=== PATIENT | female | born 1940 | race Caucasian/White ===

== ENCOUNTER 2023-08-15 07:48 | Inpatient (IN) | payer MEDICARE, OTHER ==
[2023-08-15 08:33] LABS: Hematocrit 46.1 % (36.0-47.0); Hemoglobin 15.6 g/dL (12.0-16.0); Mean Corpuscular HGB CONC 33.8 g/dL (32.0-36.0); Mean Corpuscular Hemoglobin 30.8 pg (27.0-31.0); Mean Corpuscular Volume 90.9 fl (78.0-98.0); Mean Platelet Volume 9.2 fL (7.4-10.4); Platelet Count 385 10x3/uL (130-400); RBC Distribution Width 12.4 % (11.5-14.5); Red Blood Cell (RBC) Count 5.07 mill/uL (4.20-5.40); White Blood Cell (WBC) Count 19.2 10x3/uL (4.8-10.8)
[2023-08-15 08:42] LABS: Delete Auto Diff?? YES; Manual Diff?? YES
[2023-08-15 08:59] LABS: ALT (SGPT) 15 U/L (8-55); AST (SGOT) 19 U/L (5-34); Albumin 4.4 g/dL (3.4-4.8); Alkaline Phosphatase 132 U/L (40-110); Anion Gap 33 mmol/L (10-20); BUN (Urea Nitrogen) 31 mg/dL (9.8-20.1); Bilirubin, Total 0.5 mg/dL (0.2-1.2); CK (CPK) 401 U/L (29-168); Calc. Creatinine Clearance 0 mL/min (70-130); Calcium 12.3 mg/dL (7.8-10.44); Carbon Dioxide 11 mmol/L (23-31); Chloride 91 mmol/L (98-107); Estimated GFR 26; Globulin 4.5 g/dL (2.4-3.5); Lipase 10 U/L (8-78); Magnesium 2.6 mg/dL (1.6-2.6); Potassium 4.1 mmol/L (3.5-5.1); Protein, Total 8.9 g/dL (5.8-8.1); Sodium 131 mmol/L (136-145)
[2023-08-15 09:08] LABS: Glucose 565 mg/dL (83-110)
[2023-08-15 09:16] LABS: Bacteria/HPF None Seen HPF (None Seen); Bilirubin Negative (Negative); Blood, Urine 3+ (Negative); CAUTI Indications for Culture Alt mental st,lethar; Clarity Clear (Clear); Glucose, Urine (Dipstick) Greater than 1000 mg/dL (Negative); Ketone, Urine Greater than 150 mg/dL (Negative); Leukocyte Negative Leu/uL (Negative); Nitrite Negative (Negative); Protein, Urine (Dipstick) 50 mg/dL (Neg-Trace); RBC/HPF 0-3 HPF (0-3); Specific Gravity, Urine 1.023 (1.002-1.036); Squamous Epithelial 0-3 HPF (0-3); Urobilinogen Normal mg/dL (Less than 2); WBC/HPF 0-3 HPF (0-3); pH, Urine 5.5 (5.0-9.0)
[2023-08-15 09:17] LABS: Urine Culture Reflex No No
[2023-08-15] MEDS ORDERED: Vancomycin 1 GM/200 ML (FROZEN) BAG ONE (09:33)
[2023-08-15] MEDS ORDERED: Cefepime 2 GM VIAL ONE (09:33)
[2023-08-15] MEDS ORDERED: Sodium Chloride 0.9% 100 ML ONE (09:34)
[2023-08-15 09:36] LABS: SARS-CoV-2 NAA Rapid Test Not Detected (NotDetected)
[2023-08-15 09:37] LABS: INR-International Normal Ratio 1.2; PTT 30.6 sec (22.9-36.1); Prothrombin Time 15.8 sec (12.0-14.7)
[2023-08-15 09:58] LABS: Band 13 % (5-11); Lymphocytes 3 % (21-51); Monocytes 4 % (0-10); Neutrophil 80 % (42-75)
[2023-08-15 09:59] LABS: Platelet Adequacy Comment Appears Adequate
[2023-08-15] MEDS ORDERED: Sodium Bicarb 50 MEQ/50 ML Abboject 8.4% SYRINGE ONE (10:17)
[2023-08-15] MEDS ORDERED: INSULIN REGULAR IN 0.9 % NACL 100 UNITS/100 ML BAG ONE (10:32)
[2023-08-15] MEDS ORDERED: Dextrose 5 %-0.45 % NaCl 1,000 ML IV PRN (10:38)
[2023-08-15] MEDS ORDERED: Bisacodyl 10 MG SUPP PR PRN (10:38)
[2023-08-15] MEDS ORDERED: Senokot S 8.6-50 MG TAB PO PRN (10:38)
[2023-08-15] MEDS ORDERED: Dextrose 50% Abboject 50 ML SYRINGE SLOW IVP PRN (10:38)
[2023-08-15] MEDS ORDERED: Sodium Chloride 0.9% 1,000 ML IV PRN ×4 (10:38)
[2023-08-15] MEDS ORDERED: Electrolyte Replacement Protocol 1 EACH IVPB PRN (10:38)
[2023-08-15] MEDS ORDERED: NS 0.9% w/ 20 MEQ KCL 1,000 ML IV PRN ×2 (10:38)
[2023-08-15] MEDS ORDERED: Bisacodyl 5 MG TAB PO PRN (10:38)
[2023-08-15] MEDS ORDERED: HUMULIN R 100 UNITS in Sodium Chloride 0.9% 100 ML IVPB SCH (10:45)
[2023-08-15] MEDS ORDERED: NS 0.9% w/ 20 MEQ KCL 1,000 ML ONE ×3 (10:57→15:38)
[2023-08-15 11:19] LABS: Hemoglobin A1c 6.1 % (4.0-6.0)
[2023-08-15 11:39] LABS: Lactic Acid 1.5 mmol/L (0.5-2.2)
[2023-08-15] MEDS ORDERED: [UNRECOGNIZED DRUG - REMARK] IVPB PRN (11:48)
[2023-08-15] MEDS ORDERED: Electrolyte Replacement Protocol FS PRN (12:00)
[2023-08-15 12:05] LABS: Anion Gap 28 mmol/L (10-20); BUN (Urea Nitrogen) 28 mg/dL (9.8-20.1); Calc. Creatinine Clearance 0 mL/min (70-130); Calcium 10.4 mg/dL (7.8-10.44); Carbon Dioxide 9 mmol/L (23-31); Chloride 101 mmol/L (98-107); Estimated GFR 33; Glucose 443 mg/dL (83-110); Magnesium 2.2 mg/dL (1.6-2.6); Potassium 4.5 mmol/L (3.5-5.1); Sodium 133 mmol/L (136-145)
[2023-08-15 12:25] LABS: Troponin I 0.059 ng/mL (< 0.028)
[2023-08-15] MEDS ORDERED: Cefepime 2 GM VIAL IVPB SCH (14:00)
[2023-08-15 15:29] LABS: Anion Gap 21 mmol/L (10-20); BUN (Urea Nitrogen) 22 mg/dL (9.8-20.1); Calc. Creatinine Clearance 36 mL/min (70-130); Calcium 9.7 mg/dL (7.8-10.44); Carbon Dioxide 10 mmol/L (23-31); Chloride 108 mmol/L (98-107); Estimated GFR 43; Glucose 259 mg/dL (83-110); Potassium 4.7 mmol/L (3.5-5.1); Sodium 134 mmol/L (136-145)
[2023-08-15] MEDS ORDERED: metroNIDAZOLE 500 MG/100 ML BAG ONE (15:37)
[2023-08-15 15:43] LABS: Troponin I 0.136 ng/mL (< 0.028)
[2023-08-15] MEDS: metroNIDAZOLE 500 MG in Premix 1 BAG IVPB SCH ×2 (15:49→20:11)
[2023-08-15] MEDS ORDERED: FLU VACC QS2023(65UP)/MF59C/PF 60 MCG/0.5 ML SYRINGE IM ONE (18:30)
[2023-08-15] MEDS: D5 1/2 NS w/20 mEq KCL 1,000 ML IV PRN ×2 (18:36→22:20)
[2023-08-15] MEDS: Acetaminophen 325 MG TAB PO PRN (20:09)
[2023-08-15 21:00] LABS: Anion Gap 15 mmol/L (10-20); BUN (Urea Nitrogen) 18 mg/dL (9.8-20.1); Calc. Creatinine Clearance 42 mL/min (70-130); Calcium 9.7 mg/dL (7.8-10.44); Carbon Dioxide 13 mmol/L (23-31); Chloride 109 mmol/L (98-107); Estimated GFR 50; Glucose 197 mg/dL (83-110); Potassium 4.2 mmol/L (3.5-5.1); Sodium 133 mmol/L (136-145)
[2023-08-15] MEDS ORDERED: Vancomycin 1 GM in Sodium Chloride 0.9% 250 ML 300 ML IVPB SCH (21:00)
[2023-08-15 21:05] LABS: Legionella Urinary Ag POSITIVE (Negative); Strep pneumo Urine Ag NEGATIVE (NEGATIVE)
[2023-08-15] MEDS: Cefepime 2 GM in Sodium Chloride 0.9% 100 ML IVPB SCH (21:55)
[2023-08-15] MEDS: Azithromycin 500 MG in Sodium Chloride 0.9% 250 ML 250 ML IVPB SCH (23:56)
[2023-08-16] MEDS ORDERED: Glucagon 1 MG/ML KIT IM PRN (00:26)
[2023-08-16] MEDS ORDERED: Dextrose 5% in Water 1,000 ML IV PRN (00:26)
[2023-08-16] MEDS ORDERED: Sodium Chloride 0.9% 1,000 ML IV SCH (00:30)
[2023-08-16] MEDS ORDERED: Insulin Glargine 30 UNITS/0.3 ML VIAL SC SCH ×2 (00:30→21:00)
[2023-08-16] MEDS: HumaLOG 300 UNITS/3 ML VIAL SC PRN ×5 (03:56→20:33)
[2023-08-16 04:00] LABS: Base Excess -12.4 mEq/L (-2.0 to +3.0); Chloride (VBG) 105 mmol/L (98-106); Hematocrit-VBG 46 % (36.0-47.0); Hemoglobin (Hb) 15.6 g/dL (11.7-16.1); Potassium (VBG) 4.15 mmol/L (3.70-5.30); Sodium 134 mmol/L (133-146); pH (venous) 7.269 (7.32-7.43)
[2023-08-16 04:02] LABS: Actual Bicarbonate (HCO3v) 12.8 mEq/L (22-28)
[2023-08-16 04:04] LABS: Hematocrit 45.3 % (36.0-47.0); Hemoglobin 14.6 g/dL (12.0-16.0); Mean Corpuscular HGB CONC 32.2 g/dL (32.0-36.0); Mean Corpuscular Volume 93.2 fl (78.0-98.0); Mean Platelet Volume 9.3 fL (7.4-10.4); Platelet Count 314 10x3/uL (130-400); RBC Distribution Width 12.8 % (11.5-14.5); Red Blood Cell (RBC) Count 4.86 mill/uL (4.20-5.40); White Blood Cell (WBC) Count 20.2 10x3/uL (4.8-10.8)
[2023-08-16 04:10] LABS: Delete Auto Diff?? YES; Manual Diff?? YES
[2023-08-16 04:56] LABS: Band 13 % (5-11); CellaVision Operator ID lab.abc; Lymphocytes 4 % (21-51); Monocytes 10 % (0-10); Neutrophil 73 % (42-75); Platelet Adequacy Comment Platelets Normal; RBC Morphology Within Normal Limits; Total Cell Count 101
[2023-08-16] MEDS: Acetaminophen 325 MG TAB PO PRN (05:48)
[2023-08-16 07:21] LABS: BUN (Urea Nitrogen) 18 mg/dL (9.8-20.1); CK (CPK) 2383 U/L (29-168); Calc. Creatinine Clearance 44 mL/min (70-130); Calcium 10.4 mg/dL (7.8-10.44); Carbon Dioxide 10 mmol/L (23-31); Cardiac Risk 3.7 (Less than 4.5); Chloride 107 mmol/L (98-107); Cholesterol 154 mg/dl (< 200 Desired); Estimated GFR 48; Glucose 212 mg/dL (83-110); HDL Cholesterol 42 mg/dL (>60 Neg Risk); LDL Cholesterol, Calculated 91 mg/dL; Magnesium 1.8 mg/dL (1.6-2.6); Potassium 4.2 mmol/L (3.5-5.1); Sodium 134 mmol/L (136-145); Triglycerides 104 mg/dL (Less than 150)
[2023-08-16 07:32] LABS: ALT (SGPT) 38 U/L (8-55); AST (SGOT) 96 U/L (5-34); Albumin 3.4 g/dL (3.4-4.8); Alkaline Phosphatase 107 U/L (40-110); Anion Gap 23 mmol/L (10-20); Bilirubin, Direct 0.2 mg/dL (0.1-0.3); Bilirubin, Total 0.4 mg/dL (0.2-1.2); Protein, Total 6.9 g/dL (5.8-8.1)
[2023-08-16] MEDS: Ondansetron PF 4 MG/2 ML Vial IVP PRN ×2 (08:34→14:29)
[2023-08-16] MEDS ORDERED: Vancomycin 1 GM in Premix 1 BAG IVPB SCH (09:00)
[2023-08-16] MEDS: Sodium Bicarbonate 75 MEQ in Sodium Chloride 0.45% 1,000 ML IV SCH ×2 (09:06→17:25)
[2023-08-16] MEDS: Cefepime 2 GM in Sodium Chloride 0.9% 100 ML IVPB SCH ×2 (09:06→20:28)
[2023-08-16] MEDS ORDERED: Ibuprofen 200 MG TAB PO PRN (09:14)
[2023-08-16] MEDS ORDERED: Magnesium 2 GM/50 ML(in water) 2 GM in Premix 1 BAG IVPB SCH (10:00)
[2023-08-16] MEDS: methylPREDNISolone Sod Succ 40 MG VIAL IVP SCH ×3 (11:32→23:59)
[2023-08-16 13:31] LABS: Anion Gap 17 mmol/L (10-20); BUN (Urea Nitrogen) 23 mg/dL (9.8-20.1); CK (CPK) 1274 U/L (29-168); Calc. Creatinine Clearance 46 mL/min (70-130); Calcium 9.8 mg/dL (7.8-10.44); Carbon Dioxide 14 mmol/L (23-31); Chloride 107 mmol/L (98-107); Estimated GFR 50; Glucose 289 mg/dL (83-110); Potassium 4.1 mmol/L (3.5-5.1); Sodium 134 mmol/L (136-145)
[2023-08-16] MEDS: Azithromycin 500 MG in Sodium Chloride 0.9% 250 ML 250 ML IVPB SCH (23:59)
[2023-08-17] MEDS: Ondansetron PF 4 MG/2 ML Vial IVP PRN ×4 (00:38→23:59)
[2023-08-17] MEDS: Sodium Bicarbonate 75 MEQ in Sodium Chloride 0.45% 1,000 ML IV SCH (01:25)
[2023-08-17] MEDS: HumaLOG 300 UNITS/3 ML VIAL SC PRN ×5 (06:20→23:59)
[2023-08-17] MEDS: methylPREDNISolone Sod Succ 40 MG VIAL IVP SCH ×4 (06:20→23:59)
[2023-08-17 06:37] LABS: Anion Gap 24 mmol/L (10-20); BUN (Urea Nitrogen) 28 mg/dL (9.8-20.1); CK (CPK) 443 U/L (29-168); Calc. Creatinine Clearance 53 mL/min (70-130); Calcium 9.9 mg/dL (7.8-10.44); Carbon Dioxide 11 mmol/L (23-31); Chloride 102 mmol/L (98-107); Estimated GFR 60; Glucose 289 mg/dL (83-110); Magnesium 1.9 mg/dL (1.6-2.6); Sodium 133 mmol/L (136-145)
[2023-08-17 06:39] LABS: Delete Auto Diff?? YES; Hematocrit 46.1 % (36.0-47.0); Hemoglobin 15.3 g/dL (12.0-16.0); Manual Diff?? YES; Mean Corpuscular HGB CONC 33.2 g/dL (32.0-36.0); Mean Corpuscular Hemoglobin 30.4 pg (27.0-31.0); Mean Corpuscular Volume 91.5 fl (78.0-98.0); Mean Platelet Volume 9.6 fL (7.4-10.4); Platelet Count 341 10x3/uL (130-400); RBC Distribution Width 13.3 % (11.5-14.5); Red Blood Cell (RBC) Count 5.04 mill/uL (4.20-5.40); White Blood Cell (WBC) Count 26.3 10x3/uL (4.8-10.8)
[2023-08-17] MEDS ORDERED: Digoxin 0.5 MG/2 ML AMP ONE (07:42)
[2023-08-17] MEDS ORDERED: dilTIAZem 25 MG/5 ML VIAL SLOW IVP SCH (07:45)
[2023-08-17] MEDS ORDERED: dilTIAZem 25 MG/5 ML VIAL ONE (07:46)
[2023-08-17] MEDS: Sodium Bicarbonate 150 MEQ in Dextrose 5% in Water 1,000 ML IV SCH ×3 (07:52→20:35)
[2023-08-17] MEDS ORDERED: dilTIAZem 125 MG in Sodium Chloride 0.9% 100 ML IVPB SCH (08:00)
[2023-08-17] MEDS ORDERED: Magnesium 2 GM/50 ML(in water) 2 GM in Premix 1 BAG IVPB SCH (08:00)
[2023-08-17] MEDS ORDERED: Sodium Chloride 0.9% 500 ML IV SCH (08:00)
[2023-08-17] MEDS ORDERED: Digoxin 0.5 MG/2 ML AMP SLOW IVP SCH ×2 (08:00→14:00)
[2023-08-17] MEDS ORDERED: Sodium Bicarb 50 MEQ/50 ML Abboject 8.4% SYRINGE IVP SCH (08:00)
[2023-08-17] MEDS: Acetaminophen 325 MG TAB PO PRN ×2 (08:04→20:40)
[2023-08-17] MEDS ORDERED: Insulin Glargine 30 UNITS/0.3 ML VIAL SC SCH (09:00)
[2023-08-17] MEDS: Cefepime 2 GM in Sodium Chloride 0.9% 100 ML IVPB SCH (09:01)
[2023-08-17] MEDS: Insulin Glargine 30 UNITS/0.3 ML VIAL SC SCH ×2 (09:01→20:36)
[2023-08-17 10:40] LABS: Band 32 % (5-11); Burr Cells MARKED = >16 cells HPF (0-1); CellaVision Operator ID LAB.GE; Lymphocytes 3 % (21-51); Macrocytosis SLIGHT = 6-15 cells HPF (0-5); Monocytes 6 % (0-10); Neutrophil 59 % (42-75); Nucleated RBC (Manual Ct) 1 % (0); Platelet Adequacy Comment Platelets Normal; Polychromasia SLIGHT = 2-3 cells HPF (0-2); Total Cell Count 101; Toxic Granulation SLIGHT; Vacuoles SLIGHT
[2023-08-17] MEDS ORDERED: dilTIAZem 125 MG, Admixture Fee 1 EACH in Sodium Chloride 0.9% 100 ML IVPB SCH (13:45)
[2023-08-17 19:06] LABS: Anion Gap 18 mmol/L (10-20); BUN (Urea Nitrogen) 30 mg/dL (9.8-20.1); Calc. Creatinine Clearance 48 mL/min (70-130); Calcium 9.1 mg/dL (7.8-10.44); Carbon Dioxide 16 mmol/L (23-31); Chloride 99 mmol/L (98-107); Estimated GFR 54; Glucose 368 mg/dL (83-110); Potassium 3.4 mmol/L (3.5-5.1); Sodium 130 mmol/L (136-145)
[2023-08-17] MEDS ORDERED: LevoFLOXacin 750 mg/D5W 750 MG in Premix 1 BAG IVPB SCH (20:00)
[2023-08-17] MEDS ORDERED: Potassium Chloride 20 MEQ in Premix 1 BAG IVPB SCH (20:15)
[2023-08-17] MEDS: Amiodarone 450 MG in Dextrose 5% in Water 250 ML IVPB SCH (21:34)
[2023-08-17] MEDS ORDERED: Potassium Chloride 20 MEQ TAB PO SCH (21:45)
[2023-08-18] MEDS: HumaLOG 300 UNITS/3 ML VIAL SC PRN ×3 (03:12→17:49)
[2023-08-18 04:07] LABS: Hematocrit 40.1 % (36.0-47.0); Hemoglobin 14.1 g/dL (12.0-16.0); Mean Corpuscular HGB CONC 35.2 g/dL (32.0-36.0); Mean Corpuscular Hemoglobin 30.2 pg (27.0-31.0); Mean Platelet Volume 9.6 fL (7.4-10.4); Platelet Count 359 10x3/uL (130-400); RBC Distribution Width 12.9 % (11.5-14.5); Red Blood Cell (RBC) Count 4.67 mill/uL (4.20-5.40); White Blood Cell (WBC) Count 24.9 10x3/uL (4.8-10.8)
[2023-08-18 04:25] LABS: ALT (SGPT) 24 U/L (8-55); AST (SGOT) 36 U/L (5-34); Albumin 2.4 g/dL (3.4-4.8); Alkaline Phosphatase 144 U/L (40-110); Anion Gap 14 mmol/L (10-20); BUN (Urea Nitrogen) 28 mg/dL (9.8-20.1); Bilirubin, Direct 0.1 mg/dL (0.1-0.3); Bilirubin, Total 0.3 mg/dL (0.2-1.2); Calc. Creatinine Clearance 52 mL/min (70-130); Calcium 9.5 mg/dL (7.8-10.44); Carbon Dioxide 24 mmol/L (23-31); Chloride 98 mmol/L (98-107); Estimated GFR 59; Glucose 277 mg/dL (83-110); Magnesium 2.1 mg/dL (1.6-2.6); Potassium 3.6 mmol/L (3.5-5.1); Protein, Total 5.5 g/dL (5.8-8.1); Sodium 132 mmol/L (136-145)
[2023-08-18 04:47] LABS: Delete Auto Diff?? YES; Manual Diff?? YES; Mean Corpuscular Volume 85.9 fl (78.0-98.0)
[2023-08-18 05:15] LABS: Band 10 % (5-11); CellaVision Operator ID lab.abc; Metamyelocyte 1 % (0-0); Monocytes 5 % (0-10); Myelocyte 1 % (0-0); Neutrophil 83 % (42-75); Platelet Adequacy Comment Platelets Normal; RBC Morphology Within Normal Limits; Total Cell Count 100
[2023-08-18] MEDS: Ondansetron PF 4 MG/2 ML Vial IVP PRN ×3 (05:36→17:51)
[2023-08-18] MEDS: methylPREDNISolone Sod Succ 40 MG VIAL IVP SCH ×4 (05:37→22:10)
[2023-08-18] MEDS: Sodium Bicarbonate 150 MEQ in Dextrose 5% in Water 1,000 ML IV SCH ×2 (05:37→10:57)
[2023-08-18] MEDS: Amiodarone 450 MG in Dextrose 5% in Water 250 ML IVPB SCH ×2 (05:39→18:21)
[2023-08-18] MEDS: Insulin Glargine 30 UNITS/0.3 ML VIAL SC SCH ×2 (10:56→21:40)
[2023-08-18] MEDS ORDERED: Mag-Al 1200 mg/1200 mg/30 ML UDCUP PO SCH (21:30)
[2023-08-18] MEDS: Acetaminophen 325 MG TAB PO PRN (21:40)
[2023-08-18] MEDS: Promethazine HCl 25 MG in Sodium Chloride 0.9% 50 ML IVPB PRN (22:10)
[2023-08-19] MEDS: methylPREDNISolone Sod Succ 40 MG VIAL IVP SCH ×4 (05:13→23:44)
[2023-08-19] MEDS: HumaLOG 300 UNITS/3 ML VIAL SC PRN ×4 (05:24→17:08)
[2023-08-19 05:39] LABS: #Basophils 0.1 thou/uL (0.0-0.2); #Monocytes 1.1 thou/uL (0.11-0.59); #Neutrophils 18.2 thou/uL (1.40-6.50); %Basophils 0.6 % (0.0-1.0); %Lymphocytes 5.3 % (21.0-51.0); Hemoglobin 13.8 g/dL (12.0-16.0); Mean Corpuscular HGB CONC 35.4 g/dL (32.0-36.0); Mean Corpuscular Hemoglobin 30.7 pg (27.0-31.0); Mean Corpuscular Volume 86.7 fl (78.0-98.0); Mean Platelet Volume 9.2 fL (7.4-10.4); Platelet Count 363 10x3/uL (130-400); RBC Distribution Width 13.1 % (11.5-14.5); White Blood Cell (WBC) Count 21.5 10x3/uL (4.8-10.8)
[2023-08-19 06:01] LABS: Anion Gap 9 mmol/L (10-20); BUN (Urea Nitrogen) 23 mg/dL (9.8-20.1); Calc. Creatinine Clearance 68 mL/min (70-130); Calcium 9.3 mg/dL (7.8-10.44); Carbon Dioxide 34 mmol/L (23-31); Chloride 93 mmol/L (98-107); Estimated GFR 79; Glucose 278 mg/dL (83-110); Magnesium 2.2 mg/dL (1.6-2.6); Potassium 3.6 mmol/L (3.5-5.1); Sodium 132 mmol/L (136-145)
[2023-08-19] MEDS: Sodium Bicarbonate 150 MEQ in Dextrose 5% in Water 1,000 ML IV SCH (06:35)
[2023-08-19] MEDS: Promethazine HCl 25 MG in Sodium Chloride 0.9% 50 ML IVPB PRN (08:47)
[2023-08-19] MEDS: Empagliflozin 10 MG TAB PO SCH (09:02)
[2023-08-19] MEDS: Insulin Glargine 30 UNITS/0.3 ML VIAL SC SCH ×2 (09:02→20:50)
[2023-08-19] MEDS: Famotidine 20 MG TAB PO SCH (09:02)
[2023-08-19] MEDS: Amiodarone 450 MG in Dextrose 5% in Water 250 ML IVPB SCH (11:24)
[2023-08-19] MEDS: Ondansetron PF 4 MG/2 ML Vial IVP PRN ×3 (11:24→23:47)
[2023-08-19] MEDS: LevoFLOXacin 750 mg/D5W 750 MG in Premix 1 BAG IVPB SCH (20:42)
[2023-08-19] MEDS: Amiodarone 200 MG TAB PO SCH (20:42)
[2023-08-20 05:26] LABS: Hematocrit 36.3 % (36.0-47.0); Hemoglobin 12.4 g/dL (12.0-16.0); Mean Corpuscular HGB CONC 34.2 g/dL (32.0-36.0); Mean Corpuscular Hemoglobin 30.2 pg (27.0-31.0); Mean Corpuscular Volume 88.3 fl (78.0-98.0); Mean Platelet Volume 9.2 fL (7.4-10.4); Platelet Count 360 10x3/uL (130-400); RBC Distribution Width 13.2 % (11.5-14.5); Red Blood Cell (RBC) Count 4.11 mill/uL (4.20-5.40); White Blood Cell (WBC) Count 19.6 10x3/uL (4.8-10.8)
[2023-08-20 05:35] LABS: Delete Auto Diff?? YES; Manual Diff?? YES
[2023-08-20 05:50] LABS: Anion Gap 8 mmol/L (10-20); BUN (Urea Nitrogen) 25 mg/dL (9.8-20.1); Calc. Creatinine Clearance 69 mL/min (70-130); Calcium 9.1 mg/dL (7.8-10.44); Carbon Dioxide 35 mmol/L (23-31); Chloride 95 mmol/L (98-107); Estimated GFR 81; Glucose 132 mg/dL (83-110); Magnesium 2.3 mg/dL (1.6-2.6); Potassium 3.6 mmol/L (3.5-5.1); Sodium 134 mmol/L (136-145)
[2023-08-20 06:09] LABS: Band 2 % (5-11); CellaVision Operator ID lab.sh2; Lymphocytes 7 % (21-51); Monocytes 10 % (0-10); Neutrophil 81 % (42-75); Nucleated RBC (Manual Ct) 1 % (0); Platelet Adequacy Comment Platelets Normal; Polychromasia MODERATE = 3-4 cells HPF (0-2); Smudge Cells 2.9 %; Total Cell Count 102
[2023-08-20] MEDS: methylPREDNISolone Sod Succ 40 MG VIAL IVP SCH ×2 (06:18→18:05)
[2023-08-20] MEDS: Famotidine 20 MG TAB PO SCH (09:38)
[2023-08-20] MEDS: Empagliflozin 10 MG TAB PO SCH (09:38)
[2023-08-20] MEDS: Amiodarone 200 MG TAB PO SCH ×2 (09:38→20:10)
[2023-08-20] MEDS: Insulin Glargine 30 UNITS/0.3 ML VIAL SC SCH ×2 (09:38→20:10)
[2023-08-20] MEDS: Acetaminophen 325 MG TAB PO PRN (19:10)
[2023-08-20] MEDS: LevoFLOXacin 750 mg/D5W 750 MG in Premix 1 BAG IVPB SCH (20:09)
[2023-08-20] MEDS: Apixaban 5 MG TAB PO SCH (20:10)
[2023-08-21] MEDS: methylPREDNISolone Sod Succ 40 MG VIAL IVP SCH (06:33)
[2023-08-21 06:46] LABS: #Basophils 0.1 thou/uL (0.0-0.2); #Monocytes 1.8 thou/uL (0.11-0.59); #Neutrophils 14.9 thou/uL (1.40-6.50); %Basophils 0.6 % (0.0-1.0); %Eosinophils 0.1 % (0.0-10.0); %Lymphocytes 10.1 % (21.0-51.0); %Neutrophils 73.4 % (42.0-75.0); Hematocrit 33.8 % (36.0-47.0); Hemoglobin 11.5 g/dL (12.0-16.0); Mean Corpuscular Hemoglobin 30.7 pg (27.0-31.0); Mean Corpuscular Volume 90.4 fl (78.0-98.0); Platelet Count 381 10x3/uL (130-400); RBC Distribution Width 13.1 % (11.5-14.5); Red Blood Cell (RBC) Count 3.74 mill/uL (4.20-5.40); White Blood Cell (WBC) Count 20.3 10x3/uL (4.8-10.8)
[2023-08-21 07:13] LABS: Anion Gap 9 mmol/L (10-20); BUN (Urea Nitrogen) 31 mg/dL (9.8-20.1); Calc. Creatinine Clearance 66 mL/min (70-130); Calcium 8.9 mg/dL (7.8-10.44); Carbon Dioxide 36 mmol/L (23-31); Chloride 93 mmol/L (98-107); Estimated GFR 76; Glucose 127 mg/dL (83-110); Magnesium 2.2 mg/dL (1.6-2.6); Potassium 3.5 mmol/L (3.5-5.1); Sodium 134 mmol/L (136-145)
[2023-08-21 07:22] LABS: Burr Cells SLIGHT = 2-5 cells HPF (0-1); CellaVision Operator ID LAB.NR; Platelet Adequacy Comment Platelets Decreased; Polychromasia SLIGHT = 2-3 cells HPF (0-2); Schistocytes SLIGHT = 2-5 cells HPF (0-1)
[2023-08-21] MEDS ORDERED: Potassium Chloride 20 MEQ TAB PO SCH (08:00)
[2023-08-21] MEDS: Empagliflozin 10 MG TAB PO SCH (10:26)
[2023-08-21] MEDS: Amiodarone 200 MG TAB PO SCH ×2 (10:26→20:24)
[2023-08-21] MEDS: Famotidine 20 MG TAB PO SCH (10:26)
[2023-08-21] MEDS: Insulin Glargine 30 UNITS/0.3 ML VIAL SC SCH ×3 (10:27→20:27)
[2023-08-21] MEDS: Apixaban 5 MG TAB PO SCH ×2 (10:27→20:23)
[2023-08-21] MEDS: Acetaminophen 325 MG TAB PO PRN ×2 (14:22→20:32)
[2023-08-21] MEDS: HumaLOG 300 UNITS/3 ML VIAL SC PRN ×2 (17:06→22:13)
[2023-08-21] MEDS: LevoFLOXacin 750 mg/D5W 750 MG in Premix 1 BAG IVPB SCH (20:22)
[2023-08-22 04:26] LABS: Hematocrit 29.1 % (36.0-47.0); Hemoglobin 9.8 g/dL (12.0-16.0); Mean Corpuscular HGB CONC 33.7 g/dL (32.0-36.0); Mean Corpuscular Hemoglobin 30.6 pg (27.0-31.0); Mean Corpuscular Volume 90.9 fl (78.0-98.0); Mean Platelet Volume 9.2 fL (7.4-10.4); Platelet Count 372 10x3/uL (130-400); White Blood Cell (WBC) Count 16.9 10x3/uL (4.8-10.8)
[2023-08-22 04:56] LABS: Anion Gap 11 mmol/L (10-20); BUN (Urea Nitrogen) 35 mg/dL (9.8-20.1); Calc. Creatinine Clearance 68 mL/min (70-130); Calcium 8.7 mg/dL (7.8-10.44); Carbon Dioxide 32 mmol/L (23-31); Chloride 95 mmol/L (98-107); Estimated GFR 80; Glucose 100 mg/dL (83-110); Magnesium 2.1 mg/dL (1.6-2.6); Potassium 3.9 mmol/L (3.5-5.1); Sodium 134 mmol/L (136-145)
[2023-08-22 05:02] LABS: Delete Auto Diff?? YES; Manual Diff?? YES
[2023-08-22 05:46] LABS: CellaVision Operator ID lab.sh2; Eosinophils 1 % (0-10); Large Platelets 1.9 % (0-5); Lymphocytes 15 % (21-51); Macrocytosis SLIGHT = 6-15 cells HPF (0-5); Monocytes 11 % (0-10); Neutrophil 73 % (42-75); Platelet Adequacy Comment Platelets Normal; Polychromasia SLIGHT = 2-3 cells HPF (0-2); Total Cell Count 105
[2023-08-22] MEDS: Empagliflozin 10 MG TAB PO SCH (09:19)
[2023-08-22] MEDS: Apixaban 5 MG TAB PO SCH ×2 (09:19→20:27)
[2023-08-22] MEDS: Famotidine 20 MG TAB PO SCH (09:19)
[2023-08-22] MEDS: Amiodarone 200 MG TAB PO SCH ×2 (09:19→20:27)
[2023-08-22] MEDS: Insulin Glargine 30 UNITS/0.3 ML VIAL SC SCH ×2 (09:20→20:27)
[2023-08-22] MEDS: Acetaminophen 325 MG TAB PO PRN ×2 (09:28→16:43)
[2023-08-22] MEDS ORDERED: Ibuprofen 200 MG TAB PO SCH (19:45)
[2023-08-22] MEDS: LevoFLOXacin 750 MG TAB PO SCH (20:26)
[2023-08-23 04:15] LABS: Hemoglobin 8.4 g/dL (12.0-16.0); Mean Corpuscular HGB CONC 33.6 g/dL (32.0-36.0); Mean Corpuscular Hemoglobin 31.1 pg (27.0-31.0); Mean Corpuscular Volume 92.6 fl (78.0-98.0); Mean Platelet Volume 8.8 fL (7.4-10.4); Platelet Count 395 10x3/uL (130-400); RBC Distribution Width 13.3 % (11.5-14.5); White Blood Cell (WBC) Count 17.4 10x3/uL (4.8-10.8)
[2023-08-23 04:18] LABS: Delete Auto Diff?? YES; Manual Diff?? YES
[2023-08-23 04:42] LABS: Anion Gap 9 mmol/L (10-20); BUN (Urea Nitrogen) 26 mg/dL (9.8-20.1); Calc. Creatinine Clearance 0 mL/min (70-130); Calcium 8.8 mg/dL (7.8-10.44); Carbon Dioxide 34 mmol/L (23-31); Chloride 97 mmol/L (98-107); Estimated GFR 79; Glucose 64 mg/dL (83-110); Potassium 3.2 mmol/L (3.5-5.1); Sodium 137 mmol/L (136-145)
[2023-08-23 04:55] LABS: Band 3 % (5-11); CellaVision Operator ID LAB.CLH1; Eosinophils 1 % (0-10); Hypochromia SLIGHT = 6-15 cells HPF (0-5); Lymphocytes 15 % (21-51); Metamyelocyte 1 % (0-0); Monocytes 7 % (0-10); Neutrophil 72 % (42-75); Platelet Adequacy Comment Platelets Normal; Polychromasia SLIGHT = 2-3 cells HPF (0-2); Reactive Lymphocytes 1 % (0-10); Total Cell Count 101
[2023-08-23] MEDS ORDERED: Potassium Chloride 20 MEQ TAB PO SCH (08:00)
[2023-08-23] MEDS ORDERED: Ibuprofen 200 MG TAB PO SCH (08:30)
[2023-08-23] MEDS: Famotidine 20 MG TAB PO SCH (09:17)
[2023-08-23] MEDS: Empagliflozin 10 MG TAB PO SCH (09:17)
[2023-08-23] MEDS: Amiodarone 200 MG TAB PO SCH ×2 (09:18→21:10)
[2023-08-23] MEDS: Apixaban 5 MG TAB PO SCH (09:18)
[2023-08-23] MEDS: Insulin Glargine 30 UNITS/0.3 ML VIAL SC SCH ×2 (09:19→21:07)
[2023-08-23] MEDS: Pantoprazole 40 MG VIAL IVP SCH ×2 (11:19→21:10)
[2023-08-23] MEDS: Acetaminophen 325 MG TAB PO PRN ×2 (13:30→21:44)
[2023-08-23] MEDS ORDERED: AcetaZOLAMIDE 250 MG TAB PO SCH (18:45)
[2023-08-23] MEDS ORDERED: Famotidine 20 MG TAB PO SCH (21:00)
[2023-08-23] MEDS: LevoFLOXacin 750 MG TAB PO SCH (21:10)
[2023-08-24 04:07] LABS: Hematocrit 24.9 % (36.0-47.0); Hemoglobin 8.1 g/dL (12.0-16.0); Mean Corpuscular HGB CONC 32.5 g/dL (32.0-36.0); Mean Corpuscular Hemoglobin 30.6 pg (27.0-31.0); Mean Platelet Volume 8.8 fL (7.4-10.4); Platelet Count 457 10x3/uL (130-400); RBC Distribution Width 13.6 % (11.5-14.5); Red Blood Cell (RBC) Count 2.65 mill/uL (4.20-5.40)
[2023-08-24 04:37] LABS: Anion Gap 9 mmol/L (10-20); BUN (Urea Nitrogen) 20 mg/dL (9.8-20.1); Calc. Creatinine Clearance 63 mL/min (70-130); Calcium 8.7 mg/dL (7.8-10.44); Carbon Dioxide 30 mmol/L (23-31); Chloride 102 mmol/L (98-107); Estimated GFR 73; Glucose 111 mg/dL (83-110); Potassium 3.7 mmol/L (3.5-5.1); Sodium 137 mmol/L (136-145)
[2023-08-24 04:43] LABS: Delete Auto Diff?? YES; Manual Diff?? YES
[2023-08-24 05:34] LABS: Burr Cells SLIGHT = 2-5 cells HPF (0-1); CellaVision Operator ID lab.sh2; Lymphocytes 7 % (21-51); Macrocytosis SLIGHT = 6-15 cells HPF (0-5); Monocytes 9 % (0-10); Neutrophil 84 % (42-75); Ovalocytes SLIGHT = 2-5 cells HPF (0-1); Platelet Adequacy Comment Platelets Increased; Polychromasia MODERATE = 3-4 cells HPF (0-2); Total Cell Count 100; Toxic Granulation SLIGHT
[2023-08-24] MEDS: Amiodarone 200 MG TAB PO SCH (08:38)
[2023-08-24] MEDS: Pantoprazole 40 MG VIAL IVP SCH (08:38)
[2023-08-24] MEDS ORDERED: PROPOFOL 20 ML ONE (11:44)
[2023-08-24] MEDS ORDERED: Lidocaine 1% PF 5 ML VIAL ONE ×2 (11:44→12:15)
[2023-08-24] MEDS ORDERED: PROPOFOL 200 MG/20 ML VIAL ONE (12:15)
[2023-08-24] MEDS ORDERED: ePHEDrine Sulfate 50 MG/10 ML VIAL ONE ×2 (12:15→12:27)
[2023-08-24 13:20] VITALS: BP 126/59; TEMP 97.8
[2023-08-24] MEDS: Empagliflozin 10 MG TAB PO SCH (13:23)
[2023-08-24] MEDS: Insulin Glargine 30 UNITS/0.3 ML VIAL SC SCH (13:23)
[2023-08-24] MEDS ORDERED: Fluconazole 100 MG TAB PO SCH (13:45)
[2023-08-24 14:27] VITALS: BMI 27.8
== END 2023-08-24 15:55 | disposition home health service (06) | DRG 871 ==
LOC: ERS 07:48 → SUATTDRO 07:48 → ERHOLD 10:38 → IMCU/EMU 17:32 → 2NO 08-23 17:25
PROVIDERS: ADMIT Family Medicine; ATTEND Internal Medicine
PROC: 3E03329 Introduction of Other Anti-infective into Peripheral Vein, Percutaneous Approach (ICD-10-PCS; 2023-08-15)
PROC: 4A043R1 Measurement of Venous Saturation, Peripheral, Percutaneous Approach (ICD-10-PCS; 2023-08-16)
PROC: 0DB58ZX Excision of Esophagus, Via Natural or Artificial Opening Endoscopic, Diagnostic (ICD-10-PCS; principal; 2023-08-24)
PROC: 0DB78ZX Excision of Stomach, Pylorus, Via Natural or Artificial Opening Endoscopic, Diagnostic (ICD-10-PCS; 2023-08-24)
PROC: 3E033XZ Introduction of Vasopressor into Peripheral Vein, Percutaneous Approach (ICD-10-PCS; 2023-08-24)
DX: A41.9 Sepsis, unspecified organism (principal); E11.10 Type 2 diabetes mellitus with ketoacidosis without coma; J96.01 Acute respiratory failure with hypoxia; J15.69 Pneumonia due to other Gram-negative bacteria; K26.4 Chronic or unspecified duodenal ulcer with hemorrhage; I21.A1 Myocardial infarction type 2; N17.9 Acute kidney failure, unspecified; E87.1 Hypo-osmolality and hyponatremia; M62.82 Rhabdomyolysis; I51.81 Takotsubo syndrome; B37.81 Candidal esophagitis; E87.3 Alkalosis; Z66 Do not resuscitate; R65.20 Severe sepsis without septic shock; M19.90 Unspecified osteoarthritis, unspecified site; N32.89 Other specified disorders of bladder; E87.8 Other disorders of electrolyte and fluid balance, not elsewhere classified; K21.00 Gastro-esophageal reflux disease with esophagitis, without bleeding; E11.22 Type 2 diabetes mellitus with diabetic chronic kidney disease; N18.2 Chronic kidney disease, stage 2 (mild); Z79.899 Other long term (current) drug therapy; Z11.52 Encounter for screening for COVID-19; Z88.5 Allergy status to narcotic agent; I48.0 Paroxysmal atrial fibrillation; I25.5 Ischemic cardiomyopathy
CPT/HCPCS: 36415; 36416; 71045; 71250; 74177; 80048; 80053; 80061; 80076; 81001; 82010; 82550; 82805; 83036; 83605; 83690; 83735; 83880; 83930; 84443; 84484; 85025; 85379; 85610; 85730; 87040; 87081; 87449; 87899; 88305; 93005; 93010; 93306; 96361; 96365; 96366; 96367; C9113; J0282; J0456; J0692; J1160; J1650; J1815; J1956; J2405; J2550; J2704; J2920; J3370-JW; J3475; J3480; J3490; J7030; J7050; J7070